=== PATIENT | male | born 1955 | race Caucasian/White ===

== ENCOUNTER → 2021-07-17 09:05 | Outpatient (CLI) | payer BC, SELFPAY ==
--- NOTE | ~2021-07-17 | XR_ITS ---
EXAMINATION: XR sacroiliac joints min 3V INDICATION: Low back pain, unspecified TECHNIQUE: Three views of the sacrum and coccyx are obtained. COMPARISON: None available FINDINGS: Bone alignment is normal. There is no fracture. Phleboliths are noted in the pelvis. There is severe lower lumbar spondylosis. No abnormal sclerosis or erosion of the sacroiliac joints is iden tified. IMPRESSION: 1. No acute osseous abnormality. Reviewed, dictated and finalized at location B. T METAL WORKER HELPER
--- NOTE | ~2021-07-17 | XR_ITS ---
EXAMINATION: XR lumbar spine min 4V DATE: 07/17/2021 10:27 INDICATION: Low back pain TECHNIQUE: Anteroposterior, lateral, and bilateral oblique views of the lumbar spine, and cone-down l ateral view of the lumbosacral junction were obtained. COMPARISON: None. FINDINGS: There is no fracture, dislocation, or subluxation. The vertebral body heights are maintaine d. There is severe loss of intervertebral disc space height at L4-5 and L5-S1. Small degenerative ost eophytes project from the anterior endplates of multiple vertebral bodies. There is moderate facet os teoarthritis of the lower lumbar spine. IMPRESSION: 1. Severe lumbar spondylosis at L4-5 and L5-S1. Reviewed, dictated and finalized at location B. 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
== END ==
PROVIDERS: PCP Family Medicine; Visit Provider Physician Assistant
DX: M47.896 Other spondylosis, lumbar region (principal); M47.897 Other spondylosis, lumbosacral region
CPT/HCPCS: 72110; 72202

== ENCOUNTER → 2021-08-07 08:00 | Outpatient (CLI) | payer BC, SELFPAY ==
--- NOTE | ~2021-08-07 | MR_ITS ---
EXAMINATION: MR lumbar spine wo con DATE: 08/07/2021 08:32 INDICATION: Low back pain. TECHNIQUE: Magnetic resonance imaging (MRI) of the lumbar spine was performed without intravenous con trast. Sequences included sagittal T2-weighted FSE, sagittal T2-weighted FS FSE, sagittal T1-weighted FSE, and axial T2-weighted FSE. COMPARISON: Lumbar spine radiographs 07/17/2021 FINDINGS: There is 6 degrees levocurvature of lumbar spine. Vertebral body heights are normal. There is moderately decreased disc height at L3-L4 and severely decreased disc height at L5 or-L5 and L5-S1 with endplate remodeling. The distal spinal cord signal intensity is normal. The conus medullaris is at L1. The following disc levels are specifically discussed: L1-L2: The disc does not extend beyond the endplate margin. There is moderate bilateral facet joint o steoarthritis. There is no neural foraminal stenosis. There is no central canal stenosis. L2-L3: The disc is bulging and has an annular fissure. There is severe bilateral facet joint osteoart hritis. There is mild bilateral neural foraminal stenosis. There is mild central canal stenosis. L3-L4: The disc is bulging and has an annular fissure. There is severe bilateral facet joint osteoart hritis. There is moderate bilateral neural foraminal stenosis. There is moderate central canal stenos is. L4-L5: The disc is bulging and has an annular fissure. There is severe bilateral facet joint osteoart hritis. There is mild bilateral neural foraminal stenosis. There is mild central canal stenosis. L5-S1: The disc is bulging and has an annular fissure. There is severe bilateral facet joint osteoart hritis. There is mild right and moderate left neural foraminal stenosis. There is mild central canal stenosis. IMPRESSION: 1. Severe lumbar spondylosis. Reviewed, dictated and finalized at location A.
== END ==
PROVIDERS: PCP Family Medicine
DX: M47.896 Other spondylosis, lumbar region (principal)
CPT/HCPCS: 72148

== ENCOUNTER 2024-02-05 08:29 | Day surgery (SDC) | payer MEDICARE, SELFPAY ==
[2023-12-18 09:20] VITALS: BMI 29.9
[2024-01-26 13:18] VITALS: BMI 29.3
[2024-02-05 08:55] VITALS: BP 116/75; PULSE 54; RESP 18; TEMP 36.6; O2SAT 97; BMI 29.0
[2024-02-05] MEDS: LACTATED RINGERS 1,000 ML 150 ML IV CONT (09:08)
--- NOTE | 2024-02-05 09:11 | WPDANESEPPF ---
Anes - Initial Pre Proc Eval Procedure: Operation Date: 02/05/24 10:00 Proposed Procedures p Diagnostic Colonoscopy - Wil Draper MD Date/Time: 02/05/24 09:11 Surgeon: Wil Draper MD Pre Op Diagnosis: Personal History of Colon Polyps Patient Data Age: 68 Gender: M Height: 1.8 m Weight: 94.6 kg Last Vital Signs Temp 36.6 C 02/05/24 08:55 Pulse 54 L 02/05/24 08:55 Resp 18 02/05/24 08:55 BP 116/75 02/05/24 08:55 Pulse Ox 97 02/05/24 08:55 O2 Del Method Room Air 02/05/24 08:55 Allergies Allergy/AdvReac Type Severity Reaction Status Date / Time No Known Allergies Allergy Verified 02/05/24 08:48 Home Medications Medication Instructions Recorded Confirmed Type ibuprofen 800 mg tablet 800 mg PO BID PRN pain #90 tabs 07/23/22 02/05/24 Rx atorvastatin 40 mg tablet 40 mg PO DAILY #90 tabs 08/04/23 02/05/24 Rx lisinopril 20 mg tablet 20 mg PO DAILY #90 tabs 08/04/23 02/05/24 Rx Patient hx anesthesia problems: none Family hx anesthesia problems: none Results Review: All pre-operative results and documents have been reviewed as part of the pre-operative evaluation. [facility] Past Medical History Medical History (Updated 02/05/24 @ 09:11 by Greg Ross MD) Hyperlipidemia Inguinal hernia Lumbar spondylosis Primary hypertension Surgical History Surgical History History of hemorrhoidectomy History of tonsillectomy History of vasectomy Family History Family History Father Hypertension Grandparent Acute myocardial infarction Carcinoma of colon Mother Family history of lung cancer Social History Social History Smoking status: Never smoker Second hand tobacco smoke exposure: No Alcohol intake: current Drinks per week: 5 Substance use: never Substance use type: does not use Do You Feel Safe in your Home?: Yes Lack of Transportation: No Lack of Food: Never True Current Housing: I Have Housing Concerned About Future Housing: No Difficulty Paying Gas/Electric Bills: No Difficulty Paying for Meds: No Currently Unemployed: No Education: Decline to Answer Living arrangements: with family Occupation/Education: occupation Gender identity (if verbalized by the patient): Male Sexual Orientation (if Verbalized by the Patient): Straight or Heterosexual Spiritual care concerns: No Agree to blood products: Yes Anes - Eval Final PreProcedure Day of Procedure 02/05/24 09:11 Patient weight: overweight Heart: regular rate and rhythm Lungs: clear to auscultation Airway: Mallampati scale class II Neurological: alert and oriented Last oral intake: >/= 8 hours ASA classification: II Emergent: no Anesthetic plan: proceed Anesthesia type and monitoring: general GIVS and standard monitoring Results Review: All pre-operative results and documents have been reviewed as part of the pre-operative evaluation. Informed Consent: The patient's anesthetic plan and its attendant risks and benefits were discussed with the patient/family/POA. Questions were solicited and answers provided to the satisfaction of the patient/family/POA.
--- NOTE | 2024-02-05 09:40 | PM.HPGS ---
History of Present Illness History of Present Illness Consent: Risks, benefits, and alternatives have been discussed and questions answered. Patient agrees to proceed with procedure. Chief complaint: Personal History of Colon Polyps Narrative: Mian Brown is a 68 year old male presents for screening colonoscopy. Patient was found to have adenomatous colon polyp at the time of last colonoscopy 5 years ago. Patient's current weight appetite bowel movements are normal. Family history is noncontributory. Review of Systems Review of Systems: All systems reviewed & are unremarkable except as noted in HPI and below PMFSH Past Medical History Medical History (Updated 02/05/24 @ 09:11 by Greg Ross MD) Hyperlipidemia Inguinal hernia Lumbar spondylosis Primary hypertension Surgical History Surgical History History of hemorrhoidectomy History of tonsillectomy History of vasectomy Family History Family History Father Hypertension Grandparent Acute myocardial infarction Carcinoma of colon Mother Family history of lung cancer Social History Social History Smoking status: Never smoker Second hand tobacco smoke exposure: No Alcohol intake: current Drinks per week: 5 Substance use: never Substance use type: does not use Do You Feel Safe in your Home?: Yes Lack of Transportation: No Lack of Food: Never True Current Housing: I Have Housing Concerned About Future Housing: No Difficulty Paying Gas/Electric Bills: No Difficulty Paying for Meds: No Currently Unemployed: No Education: Decline to Answer Living arrangements: with family Occupation/Education: occupation Gender identity (if verbalized by the patient): Male Sexual Orientation (if Verbalized by the Patient): Straight or Heterosexual Spiritual care concerns: No Agree to blood products: Yes Meds Home Medications and Allergies Home Medications Medication Instructions Recorded Confirmed Type ibuprofen 800 mg tablet 800 mg PO BID PRN pain #90 tabs 07/23/22 02/05/24 Rx atorvastatin 40 mg tablet 40 mg PO DAILY #90 tabs 08/04/23 02/05/24 Rx lisinopril 20 mg tablet 20 mg PO DAILY #90 tabs 08/04/23 02/05/24 Rx Allergies Allergy/AdvReac Type Severity Reaction Status Date / Time No Known Allergies Allergy Verified 02/05/24 08:48 Vital Signs Vital Signs - 24 hr 02/05/24 08:55 Temperature 97.8 F Pulse Rate 54 L Respiratory Rate 18 Blood Pressure 116/75 Pulse Oximetry 97 Oxygen Delivery Room Air Exam Narrative: Physical exam reveals patient signs stable. HEENT exam is unremarkable. Patient is anicteric. Is are clear to auscultation and percussion. Heart is without murmur or extra sounds. Abdominal exam bowel sounds are present soft nontender with no organomegaly. Digital external rectal exam normal. Assessment and Plan Assessment and plan (1) Personal history of colonic polyps: Code(s): Z86.010 - Personal history of colonic polyps Status: Acute Assessment and Plan: Patient has a prior history of adenomatous colon polyp. Plan for surveillance colonoscopy now and consider this at 5 year intervals.
[2024-02-05 10:06] VITALS: BP 80/51; PULSE 60; RESP 14; O2SAT 96
[2024-02-05 10:16] VITALS: BP 80/66; PULSE 55; RESP 15; O2SAT 97
[2024-02-05 10:26] VITALS: BP 106/77; PULSE 60; RESP 14; O2SAT 98
[2024-02-05 10:36] VITALS: BP 112/66; PULSE 50; RESP 14; O2SAT 98
--- NOTE | 2024-02-05 13:39 | WPDANESPN ---
Anes - Prog Note Post-Op Date/Time: 02/05/24 13:39 Cardiovascular status: normal Respiratory status: normal Airway patency: baseline Mental status: baseline Post-Op hydration status: normal Vital Signs: Last Vital Signs Temp 36.6 C 02/05/24 08:55 Pulse 50 L 02/05/24 10:36 Resp 14 02/05/24 10:36 BP 112/66 02/05/24 10:36 Pulse Ox 98 02/05/24 10:36 O2 Del Method Room Air 02/05/24 10:36 Pain Score (VAS): 0 I/O: Intake & Output 02/04/24 02/05/24 02/05/24 23:59 07:59 15:59 Intake Total 650 Balance 650 Patient Feedback: Patient satisfied with anesthetic care.
== END 2024-02-05 10:58 | disposition home or self-care (01) ==
PROVIDERS: PCP Family Medicine; Visit Provider Internal Medicine Gastroenterology
PROC: 0DJD8ZZ Inspection of Lower Intestinal Tract, Via Natural or Artificial Opening Endoscopic (ICD-10-PCS; CPT 45378; principal; 2024-02-05 10:00)
DX: Z86.010 Personal history of colon polyps (principal); K57.30 Diverticulosis of large intestine without perforation or abscess without bleeding; K64.8 Other hemorrhoids
CPT/HCPCS: G0105

== ENCOUNTER 2024-04-06 09:52 | Outpatient (CLI) | payer MEDICARE, SELFPAY ==
--- NOTE | 2024-04-06 10:00 | ECG_ITS ---
Test Date: 2024-04-06 10:01:28 Measurements Intervals [place] Rate: 58 P: 25 [place]: 158 QRS: -51 QRSD: 98 T: 32 QT: 400 QTc: 396 Interpretive Statements SINUS BRADYCARDIA LEFT AXIS DEVIATION INFERIOR INFARCT, AGE INDETERMINATE ABNORMAL ECG No previous ECG available for comparison Electronically Signed On 04-06-2024 12:08:54 CARD PLACER by Jake Nunes D.O.
== END 2024-04-06 09:53 | disposition home or self-care (01) ==
LOC: ANHSURGERY 09:57
PROVIDERS: PCP Family Medicine; Visit Provider Surgery
DX: I10 Essential (primary) hypertension (principal); K40.90 Unilateral inguinal hernia, without obstruction or gangrene, not specified as recurrent; K42.9 Umbilical hernia without obstruction or gangrene; Z01.818 Encounter for other preprocedural examination
CPT/HCPCS: 36415; 86850; 86900; 86901; 93005

== ENCOUNTER 2024-04-15 01:35 | Day surgery (SDC) | payer MEDICARE, SELFPAY ==
[2024-04-05 08:38] VITALS: BMI 29.8
--- NOTE | 2024-04-05 09:10 | PC.NURSE ---
Report to the Outpatient Waiting Room, entrance under the green pavilion located off [facility], at time ___10:00AM____ on date ____04/15/24___. Planned Procedure Time: __12:00PM .? Time changes happen often and if your time is changed the preop area will call you the afternoon before. - You and your visitor will be asked to self-screen and do not enter if you have any COVID symptoms. Please call surgeon if you need to reschedule. - A mask is optional within the hospital at this time. Patients may have clear liquids (water, carbonated beverages, clear teas, apple juice) until 3 hours prior to surgery with a maximum of 20 ounces. - No food from midnight until time of surgery and no smoking. This includes no chewing gum, candy or mints. Take only the following medications with a SIP of water on the morning of surgery: NONE DO NOT STOP ANY OF YOUR OTHER PRESCRIPTION MEDICATIONS PRIOR TO SURGERY EXCEPT THE FOLLOWING Medications to discontinue per physician NONE Date to take last dose Please no make-up, nail lao, hairspray, perfume, deodorant, or body powder the day of surgery.? No jewelry (including any body piercings) or valuables the day of surgery, leave them at home.? Please take a shower or bath the night before, or the morning of, surgery with an antibacterial soap.? Wear comfortable, loose fitting clothing.? - Jewelry must be removed prior to entering the operating room.? Rings and piercings that are not removed may be cut off. - The hospital will not accept responsibility for valuables.? - Please leave all valuables, including medications, at home the day of surgery. If you are going home after surgery, a licensed lease purchase driver must drive you home.? - NO public transportation without another adult if you receive anesthesia. - We recommend that an adult stay with you for 24 hours following discharge. - We also recommend that you do not drive, make important decision, drink alcoholic beverages, or take any drugs that were not prescribed by your health care provider for at least 24 hours after your discharge time. Follow any additional instructions given to you from your surgeon. Telephone instructions given to ____PATIENT and asked if any additional questions and then verbalized understanding. Patient advised to call surgeon office or pre surgery nurse liaison [phone] if any additional questions.
[2024-04-15] VITALS (11 sets, daily range): BP systolic 123–161; BP diastolic 57–96; PULSE 59–106; RESP 10–20; TEMP 36.4–36.7; O2SAT 93–100
[2024-04-15] MEDS: LACTATED RINGERS 1,000 ML 30 ML IV CONT ×4 (08:57→15:07)
[2024-04-15] MEDS: ACETAMINOPHEN 500 MG TABLET 1000 MG PO (09:25)
[2024-04-15] MEDS: KETOROLAC 15 MG/ML VIAL (*BKC) IV PUSH (09:35)
--- NOTE | 2024-04-15 10:34 | WPDHPUPDATE1 ---
History and Physical Update Update Date/Time: 04/15/24 10:34 History and Physical has been reviewed, including an updated exam of the patient. There are NO changes in the patient's condition. Risks, benefits, and alternatives have been discussed and questions answered. Patient agrees to proceed with procedure.
--- NOTE | 2024-04-15 10:55 | P.PNAN_ITS ---
Anes - Initial Pre Proc Eval Procedure: Operation Date: 04/15/24 11:00 Proposed Procedures p Robotic Assisted Laparoscopic Left Inguinal Hernia Repair with Mesh, Possible Right Inguinal Hernia Repair, - Cristiano Whiteside MD s Open Umbilical Hernia Repair - Cristiano Whiteside MD Date/Time: 04/15/24 10:55 Surgeon: Cristiano Whiteside MD Pre Op Diagnosis: reducible lft ing hernia,reducible umb hernia(1cm) Patient Data Age: 69 Gender: M Height: 1.8 m Weight: 96.7 kg Last Vital Signs Temp 36.4 C L 04/15/24 09:05 Pulse 59 L 04/15/24 09:05 Resp 18 04/15/24 09:05 BP 152/83 H 04/15/24 09:05 Pulse Ox 100 04/15/24 09:05 O2 Del Method Room Air 04/15/24 09:05 Allergies Allergy/AdvReac Type Severity Reaction Status Date / Time No Known Allergies Allergy Verified 04/05/24 08:36 Home Medications Medication Instructions Recorded Confirmed Type atorvastatin 40 mg tablet 40 mg PO DAILY #90 tabs 03/30/24 04/05/24 Rx lisinopril 20 mg tablet 20 mg PO QAM 04/05/24 04/05/24 History Patient hx anesthesia problems: none Family hx anesthesia problems: none Results Review: All pre-operative results and documents have been reviewed as part of the pre- operative evaluation. [facility] Past Medical History Medical History Hyperlipidemia Inguinal hernia Lumbar spondylosis Primary hypertension Surgical History Surgical History History of hemorrhoidectomy History of tonsillectomy History of vasectomy Family History Family History Father Hypertension Grandparent Acute myocardial infarction Carcinoma of colon Mother Family history of lung cancer Social History Social History Smoking status: Never smoker Second hand tobacco smoke exposure: No Alcohol intake: current Drinks per week: 6 Substance use: never Substance use type: does not use Do You Feel Safe in your Home?: Yes Lack of Transportation: No Lack of Food: Never True Current Housing: I Have Housing Concerned About Future Housing: No Difficulty Paying Gas/Electric Bills: No Difficulty Paying for Meds: No Currently Unemployed: No Education: Decline to Answer Living arrangements: with family Additional living arrangements comments: [place] Occupation/Education: occupation Gender identity (if verbalized by the patient): Male Sexual Orientation (if Verbalized by the Patient): Straight or Heterosexual Spiritual care concerns: No Agree to blood products: Yes Anes - Eval Final PreProcedure Day of Procedure 04/15/24 10:55 Patient weight: overweight Heart: regular rate and rhythm Lungs: clear to auscultation Airway: Mallampati scale Neurological: alert and oriented Last oral intake: >/= 8 hours ASA classification: II Emergent: no Anesthetic plan: proceed Anesthesia type and monitoring: general Results Review: All pre-operative results and documents have been reviewed as part of the pre- operative evaluation. Informed Consent: The patient's anesthetic plan and its attendant risks and benefits were discussed with the patient/family/POA. Questions were solicited and answers provided to the satisfaction of the patient/family/POA.
[2024-04-15] MEDS: ceFAZolin 2 GM/D5W 50 ML 2 GM/50 ML BAG IVPB (11:07)
[2024-04-15] MEDS: LIDO 1%/EPINEPHRINE 1:100,000 20 ML VIAL 30 ML INFILTRATE (11:50)
[2024-04-15] MEDS: BUPivacaine HCL 0.5% PF 30 ML VIAL INFILTRATE (11:50)
--- NOTE | 2024-04-15 13:31 | W.PM.PROC2 ---
Procedure Note - Detailed Date of Procedure 04/15/24 Pre-op Diagnosis Reducible left inguinal hernia, Reducible Umbilical hernia(1.5 cm) Post-op Diagnosis Same Procedure Performed Robotic assisted laparoscopic left inguinal hernia repair with extra-large Bard 3D mid weight mesh. Open umbilical hernia repair without mesh Surgeon Cristiano Whiteside MD In Service Education Teacher BRODERICK Ruiz Anesthesia General Indications Patient is 69-year-old gentleman presented with a enlarging left groin bulge. It was symptomatic with some soreness and pain. It was reducible. He also had a reducible umbilical hernia and he presents now for repair of both hernias. Findings The umbilical hernia defect was 1.5cm in diameter. It was reducible and had no incarcerated contents. The left inguinal hernia was a direct left inguinal hernia. No evidence of indirect inguinal hernia or femoral hernia was seen. No right inguinal hernia seen either. Description of Procedure After informed consent was obtained patient was brought to the operating room was placed supine position and general endotracheal anesthesia was administered. The abdomen was then prepped and draped usual sterile fashion. A time-out was then performed correctly identifying the patient as well as procedure to be performed. He was given perioperative IV antibiotics. I then entered the abdomen left upper quadrant utilizing a 5mm Optiview port. Once inside the abdomen insufflated to adequate pneumoperitoneum of 15mmHg of CO2. I had and nonobstructived view of the lower abdomen and pelvis. The patient had a large direct left inguinal hernia. No evidence of a indirect defect on the left side. He had no evidence of a right inguinal hernia. His umbilical hernia had no incarcerated contents in the fascial defect was 1.5cm in diameter. I then placed robotic trocar ports across the mid abdomen under direct visualization. The umbilical trocar port was placed through the umbilical hernia defect. The [employer] Bautista robot was then brought to the patient's bedside and docked and the robotic arms were attached the robotic ports. I then advanced robotic instruments into the abdomen under direct visualization. I then scrubbed out the procedure sent down the robotic console to perform the dissection. I 1st started by repairing the left inguinal hernia. A preperitoneal flap was started anterior medial to the left anterior superior iliac spine and carried across the lower abdomen until I had taken on the left side of the umbilical ligament. Dissection was carried down in this avascular plane medially to the pubic tubercle. Laterally I dissected down until the internal ring was encountered there was no evidence of a left indirect inguinal hernia. I then dissected the tissue off of the pubic tubercle and across to the midline at the pubic symphysis. I dissected down into the space of Retzius by couple cm. I then reduced the direct inguinal hernia defect contents with the electrocautery and robotic dissection. Once this was done I then closed the defect imbricated these attenuated fibers of the transversalis fascia muscle and pseudo sac. This is done with a running absorbable 2-0 V lock suture. I then continued dissection of the peritoneal flap proximally up onto the psoas muscle. I then measured the dissected space and I felt that a extra-large piece of Bard 3D mid weight mesh measuring [id number] would fit appropriately. The mesh was brought in and placed into the dissected space. It was then secured to the tissues around the pubic tubercle utilizing 2-0 Vicryl sutures. Laterally the mesh was secured to the muscle anterior medial to the anterior superior iliac spine. Another suture was placed to secure the mesh to the tissue just above the closed direct inguinal defect. The mesh laid out very nicely without any tension. I then closed the peritoneal flap by placement of a running 2-0 absorbable V lock suture. Could this point the mesh was completely excluded from the intra-abdominal viscera. There were no holes in the peritoneal flap. I then scrubbed back into the procedure and had Bautista robot undocked from the patient's bedside. The robotic instruments removed without difficulty. I then removed all the trocar ports under direct visualization all port sites appeared hemostatic. I then allowed the abdomen decompress. I then addressed closing the umbilical hernia defect. It was 1.5cm in diameter. I extended the small curved incision at the umbilicus with a scalpel and then identified the defect which was right under the umbilicus. I then used 3 separate 0 Ethibond sutures to approximate the edges of the fascia to close the defect. The defect closed without any tension. No mesh was used. I then irrigated out the incision sterile saline solution hemostasis was good. I then closed all incisions to include the umbilical incision utilizing a running subcuticular 4-0 Monocryl suture. The incisions were then cleaned the skin glue sterile dressings were applied. The patient tolerated the procedure well no complications. All sponges, needles, and instrument counts were correct at the end procedure. EBL was _20__cc. The patient was awakened and taken to recovery in stable and satisfactory condition. Implants Extra-large Bard 3D mid weight mesh left groin measuring [id number]. Estimated Blood Loss 20 Drains No Packing No Pathology None sent Complications No immediate complications Condition Stable Disposition PACU [facility] Billing Surgery - Charge Forward: Surgery Billing
[2024-04-15] MEDS: fentaNYL CITRATE INJ (*CRX) 100 MCG/2 ML VIAL 25 MCG IV PUSH ×2 (14:55→15:11)
[2024-04-15] MEDS: oxyCODONE HCL (*CRX) 5 MG TAB IR PO (14:57)
== END 2024-04-15 16:38 | disposition home or self-care (01) ==
PROVIDERS: PCP Family Medicine; Visit Provider Surgery
PROC: 8E0Y4CZ Robotic Assisted Procedure of Lower Extremity, Percutaneous Endoscopic Approach (ICD-10-PCS; CPT 49650; principal; 2024-04-15 11:00)
PROC: (CPT 49650; 2024-04-15 11:00)
DX: K40.90 Unilateral inguinal hernia, without obstruction or gangrene, not specified as recurrent (principal); I10 Essential (primary) hypertension; E78.5 Hyperlipidemia, unspecified
CPT/HCPCS: 49650; 49591; S2900; A9270; C1781; J0690; J1100; J1885; J2004; J2405; J2704; J3010; J7120